=== PATIENT | female | born 1990 | race Two or more races ===

== ENCOUNTER 2020-12-26 09:30 | Inpatient (IN) | payer OTHER ==
[~2020-12-26] VITALS: Ht 154.9 cm; Wt 58.1 kg
== END 2020-12-27 11:06 | disposition home or self-care (01) | DRG 343 ==
LOC: ER 09:30 → SEC-K 19:10 → O/R 20:40 → SURG 12-27 08:03
PROVIDERS: ADMIT Surgery; ATTEND Surgery
PROC: BW2110Z Computerized Tomography (CT Scan) of Abdomen and Pelvis using Low Osmolar Contrast, Unenhanced and Enhanced (ICD-10-PCS; principal; 2020-12-26 19:30)
PROC: 0DTJ4ZZ Resection of Appendix, Percutaneous Endoscopic Approach (ICD-10-PCS; principal; 2020-12-26 19:30)
DX: K35.890 Other acute appendicitis without perforation or gangrene (principal); B95.4 Other streptococcus as the cause of diseases classified elsewhere; Z20.822 Contact with and (suspected) exposure to COVID-19

== ENCOUNTER → 2021-07-11 | Emergency (ER) | payer OTHER ==
[~2021-07-11] VITALS: Ht 154.9 cm; Wt 59.0 kg
== END | disposition home or self-care (01) ==
LOC: ER 10:50
DX: R07.89 Other chest pain (principal); R53.81 Other malaise

== ENCOUNTER 2024-09-17 08:26 | Emergency (ER) | payer OTHER ==
[~2024-09-17] VITALS: Ht 154.9 cm; Wt 53.1 kg
[2024-09-17 09:58] LABS: HEMATOCRIT 40.6 % (36.0-45.00); HEMOGLOBIN 14.1 g/dL (12.0-15.00); MEAN CORPUSCULAR HEMOGLOBIN 28.7 pg (27.00-32.0); MEAN CORPUSCULAR HGB CONC 34.6 g/dl (32.0-36.0); PLATELET COUNT 289 K/uL (150-450); RED CELL DISTRIBUTION WIDTH 13.9 % (11.5-14.5)
[2024-09-17 10:14] LABS: URINE APPEARANCE Clear; URINE BILIRRUBIN Negative (NEGATIVE); URINE BLOOD Negative; URINE COLOR Yellow; URINE GLUCOSE Negative (NEGATIVE); URINE KETONE Negative (NEGATIVE); URINE LEUKOCYTE Negative; URINE NITRATE Negative; URINE PROTEIN Negative (NEGATIVE); URINE UROBILINOGEN 0.2 E.U./dl
[2024-09-17 10:16] LABS: URINE BACTERIA 13.4 uL (0.0-1933); URINE EPITHELIAL CELLS 8.9 uL (0.0-38.8)
[2024-09-17 10:22] LABS: URINE RBC 1.1 uL (0.0-20.8); URINE WBC 0.3 uL (0.0-23.2)
== END 2024-09-17 13:51 | disposition home or self-care (01) ==
LOC: ER 08:28
PROVIDERS: General Practice
DX: N83.02 Follicular cyst of left ovary (principal); N83.01 Follicular cyst of right ovary